=== PATIENT | female | born 1940 | race Asian ===

== ENCOUNTER 2020-09-06 16:18 | Emergency (ER) | payer OTHER, MEDICARE, SELFPAY ==
[~2020-09-06] VITALS: Ht 162.6 cm; Wt 79.4 kg
[2020-09-06 16:21] VITALS: BP 100/61; Ht 162.6 cm; Wt 79.4 kg
== END 2020-09-06 18:25 | disposition home or self-care (01) ==
LOC: ED 16:18
DX: U07.1 COVID-19 (principal); B34.9 Viral infection, unspecified; I10 Essential (primary) hypertension; M19.90 Unspecified osteoarthritis, unspecified site; Z98.890 Other specified postprocedural states
CPT/HCPCS: U0003